=== PATIENT | female | born 1945 | race Caucasian/White ===

== ENCOUNTER 2021-02-18 12:00 | Inpatient (IN) | payer OTHER ==
[~2021-02-18] VITALS: Ht 157.5 cm; Wt 62.6 kg
[2021-02-18] MEDS ORDERED: JARDIANCE10 MG PO (15:01)
[2021-02-18] MEDS ORDERED: ALTACE5 MG PO (15:01)
[2021-02-18] MEDS ORDERED: GLIMEPIRIDE1 MG (15:01)
[2021-02-18] MEDS ORDERED: VITAMIN C500 M6 PO (15:02)
[2021-02-18] MEDS ORDERED: D3 + K2 DOTS 11 EACH PO (15:02)
[2021-02-18] MEDS ORDERED: LIPITOR20 MG PO (15:02)
[2021-02-22] MEDS ORDERED: PAIN RELIEVER500 M5 (08:36)
[2021-02-22] MEDS ORDERED: EMERGEN-C 500500 MG (08:36)
[2021-02-22] MEDS ORDERED: AMLODIPINE-BEN1 EAC2 (08:36)
[2021-02-22] MEDS ORDERED: VITAMIN D3125 MC1 (08:37)
[2021-02-22] MEDS ORDERED: HYDROCHLOROTH12.5 MG (08:37)
== END 2021-02-24 14:02 | disposition home or self-care (01) | DRG 743 ==
LOC: SURH 12:00 → OB/GYN 02-21 06:24 → O/R 02-21 06:24 → OB/GYN 02-21 16:08
PROVIDERS: ADMIT Obstetrics & Gynecology Gynecologic Oncology; ATTEND Obstetrics & Gynecology Gynecologic Oncology
PROC: 0UT20ZZ Resection of Bilateral Ovaries, Open Approach (ICD-10-PCS; 2021-02-21)
PROC: 0UT70ZZ Resection of Bilateral Fallopian Tubes, Open Approach (ICD-10-PCS; 2021-02-21)
PROC: 0UT90ZZ Resection of Uterus, Open Approach (ICD-10-PCS; principal; 2021-02-21 10:00)
DX: N84.0 Polyp of corpus uteri (principal); D25.1 Intramural leiomyoma of uterus; N83.8 Other noninflammatory disorders of ovary, fallopian tube and broad ligament; N83.292 Other ovarian cyst, left side; N83.291 Other ovarian cyst, right side

== ENCOUNTER 2023-06-25 09:38 | Outpatient (CLI) | payer OTHER ==
[~2023-06-25 09:38] MED LIST: ALTACE5 MG PO; AMLODIPINE-BEN1 EAC2; D3 + K2 DOTS 11 EACH PO; EMERGEN-C 500500 MG; GLIMEPIRIDE1 MG; HYDROCHLOROTH12.5 MG; JARDIANCE10 MG PO; LIPITOR20 MG PO; PAIN RELIEVER500 M5; VITAMIN C500 M6 PO; VITAMIN D3125 MC1
== END 2023-06-25 09:41 | disposition home or self-care (01) ==
LOC: SONOGRAMA 09:38
PROVIDERS: ATTEND Pathology Anatomic Pathology & Clinical Pathology
DX: D34 Benign neoplasm of thyroid gland (principal); E07.89 Other specified disorders of thyroid; E04.1 Nontoxic single thyroid nodule